=== PATIENT | male | born 1965 | race Asian ===

== ENCOUNTER 2017-08-15 20:51 | Emergency (ER) | payer MEDICAID, OTHER ==
[~2017-08-15] VITALS: Ht 175.3 cm; Wt 74.8 kg
[2017-08-15 21:10] VITALS: BP_SYST 119
[2017-08-15] MEDS ORDERED: TRAM50TA92 PO (21:25)
[2017-08-15] MEDS ORDERED: CYCL-10 PO (21:26)
[2017-08-15] MEDS ORDERED: KETOROLAC TROMETHAMINE 60 MG/2 ML VIAL IM ONE (21:30)
[2017-08-15] MEDS ORDERED: BACITRACIN 1 GM OINT TP ONE (22:30)
[2017-08-15 23:05] VITALS: BP_SYST 122
== END 2017-08-15 23:05 | disposition home or self-care (01) ==
LOC: SED 20:51
DX: S40.011A Contusion of right shoulder, initial encounter (principal); G89.29 Other chronic pain; M54.5 Low back pain; W50.3XXA Accidental bite by another person, initial encounter; Y93.89 Activity, other specified; Y92.89 Other specified places as the place of occurrence of the external cause; Y99.8 Other external cause status; Z88.1 Allergy status to other antibiotic agents; Z91.048 Other nonmedicinal substance allergy status
CPT/HCPCS: 72100; 73030; 96372; 99284; J1885